=== PATIENT | male | born 1980 | race African-American/Black ===

== ENCOUNTER → 2018-05-16 | Emergency (ER) | payer SELFPAY ==
[~2018-05-16] MED LIST: Aripiprazole 2 MG TAB PO SCH; Bupropion 150 MG XL TAB PO SCH; Ibuprofen 200 MG TAB ONE; Ondansetron ODT 4 MG TAB ONE; hydrOXYzine 25 MG TAB ONE; hydrOXYzine Pamoate 25 mg Capsule PO SCH; traZODone HCl 50 MG TAB PO SCH
== END ==
LOC: ERS 22:01
DX: R45.851 Suicidal ideations (principal); F31.9 Bipolar disorder, unspecified; F17.210 Nicotine dependence, cigarettes, uncomplicated; Z79.899 Other long term (current) drug therapy
CPT/HCPCS: 99285; Q0162; Q0177